=== PATIENT | female | born 1995 | race Two or more races ===

== ENCOUNTER 2020-09-27 20:01 | Emergency (ER) | payer OTHER ==
[~2020-09-27] VITALS: Ht 165.1 cm; Wt 122.2 kg
[2020-09-27 21:32] VITALS: BP 136/88
== END 2020-09-27 21:32 | disposition home or self-care (01) ==
LOC: ED 20:01
DX: L02.415 Cutaneous abscess of right lower limb (principal)
CPT/HCPCS: J2001

== ENCOUNTER 2020-09-29 20:46 | Emergency (ER) | payer OTHER ==
[~2020-09-29] VITALS: Ht 165.1 cm; Wt 122.0 kg
[2020-09-29 21:32] VITALS: Ht 165.1 cm; Wt 122.0 kg
[2020-09-29 22:56] VITALS: BP 120/74
== END 2020-09-29 22:56 | disposition home or self-care (01) ==
LOC: ED 20:46
DX: L02.415 Cutaneous abscess of right lower limb (principal)